=== PATIENT | male | born 1950 | race Caucasian/White ===

== ENCOUNTER 2016-07-23 00:16 | Emergency (ER) | payer MEDICARE ==
[~2016-07-23] VITALS: Ht 181.6 cm; Wt 125.0 kg
[~2016-07-23 00:16] MED LIST: BENA20TA PO; CIPR500T4 PO; FURO40TA PO; HYDR-3129 PO; MORP60TA20 PO; PYRI200T4 PO; RANI300T PO; TAMS0.4C67 PO
[2016-07-23 00:18] VITALS: BP 206/91; PULSE 109; RESP 18; TEMP 98.3; O2SAT 99
[2016-07-23] MEDS ORDERED: MORP1TAB26 PO (00:53)
[2016-07-23] MEDS ORDERED: POTA1TAB4 PO (00:53)
[2016-07-23] MEDS ORDERED: BENA20TA PO (00:53)
[2016-07-23] MEDS ORDERED: FISH1000 PO (00:53)
[2016-07-23] MEDS ORDERED: RANI300T PO (00:53)
[2016-07-23] MEDS ORDERED: FURO80TA PO (00:53)
[2016-07-23] MEDS ORDERED: ALLO100T PO (00:53)
[2016-07-23] MEDS ORDERED: TAMS0.4C4 PO (00:53)
[2016-07-23] MEDS ORDERED: HYDR-3583 PO (00:53)
[2016-07-23] MEDS ORDERED: ASPI-110 PO (00:53)
[2016-07-23] MEDS ORDERED: PROB500T8 PO (00:53)
[2016-07-23] MEDS ORDERED: HYDROmorphone HCL PF 1 MG/ML VIAL IV PUSH ONE ×2 (01:15→03:00)
[2016-07-23 01:43] LABS: BASOPHIL % 0.2 % (0.0-2.0); EOSINOPHIL # 0.1 TH/MM3 (0-0.4); EOSINOPHIL % 1.5 % (0.0-4.0); HEMATOCRIT 44.3 % (39.0-51.0); HEMO FLAGS DIFF FINAL; LYMPH % 11.4 % (9.0-44.0); MEAN CELL VOLUME 90.6 FL (80.0-100.0); MEAN CORPUSCULAR HGB CONC 33.1 % (32.0-36.0); MONO % 6.5 % (0.0-8.0); NEUT % 80.4 % (16.0-70.0); PLATELET COUNT 193 TH/MM3 (150-450); RED BLOOD COUNT 4.89 MIL/MM3 (4.50-5.90); RED CELL DISTRIBUTION WIDTH 14.3 % (11.6-17.2); WHITE BLOOD COUNT 8.7 TH/MM3 (4.0-11.0)
--- NOTE | 2016-07-23 01:44 | RADRPT ---
EXAM DATE/TIME: 07/23/2016 01:15 [facility] COMPARISON: No previous studies available for comparison. INDICATIONS : Severe lower leg pain and swelling. No injury. MEDICAL HISTORY : None. SURGICAL HISTORY : Total knee replacement, left. ENCOUNTER: Initial ACUITY: 2 days PAIN SCORE: 8/10 LOCATION: Left lateral FINDINGS: Two view examination of the left tibia demonstrates no evidence of fracture or dislocation. There is a total knee prosthesis in place. There is superficial soft tissue swelling throughout the calf. Erick caneal spurs are seen at the Achilles and plantar after gross mass effect. There is hypertrophic calc ification at the distal Achilles tendon. Bony mineralization is normal. CONCLUSION: Soft tissue swelling. Antony Cantu MD on July 23, 2016 at 1:40 Board Certified Radiologist. This report was verified electronically.
[2016-07-23 02:03] LABS: ALKALINE PHOSPHATASE 85 U/L (45-117); TOTAL BILIRUBIN ADULT 0.6 MG/DL (0.2-1.0)
[2016-07-23 02:04] LABS: ALT (GPT) 33 U/L (12-78); ANION GAP 8 MEQ/L (5-15); CHLORIDE 102 MEQ/L (98-107); GLOMERULAR FILTRATION RATE 72 ML/MIN (>89); SODIUM (NA) 140 MEQ/L (136-145)
[2016-07-23 02:05] LABS: AST (GOT) 20 U/L (15-37); BLOOD UREA NITROGEN 22 MG/DL (7-18); POTASSIUM 4.1 MEQ/L (3.5-5.1)
--- NOTE | 2016-07-23 02:44 | RADRPT ---
EXAM DATE/TIME: 07/23/2016 01:51 [facility] COMPARISON: No previous studies available for comparison. INDICATIONS : Left leg pain. MEDICAL HISTORY : Hypercholesterolemia. Hypertension. SURGICAL HISTORY : Hernia repair. Finger amputation. Orthopedic surgery, left shouder and bilateral knee. ENCOUNTER: Initial ACUITY: 1 day PAIN SCORE: 10/10 LOCATION: Left leg. TECHNIQUE: Venous ultrasound of the leg was performed from the inguinal ligament to the proximal calf. Real-toshia e, color Doppler and spectral tracing, compression and augmentation techniques were used. FINDINGS: There is normal compressibility of the deep venous system from the inguinal region to the proximal ca lf. No echogenic clot is seen in the lumen of the common femoral, femoral, popliteal, and posterior tibial veins. There is a normal response of the venous system to proximal and distal augmentation an d respiration. CONCLUSION: No DVT. Antony Cantu MD on July 23, 2016 at 2:42 Board Certified Radiologist. This report was verified electronically.
--- NOTE | 2016-07-23 02:50 | PD ---
HPI Chief Complaint: Skin Problem Time Seen by Provider: 00:53 Travel History International Travel<30 days: No Contact w/Intl Traveler<30days: No Traveled to known affect area: No History of Present Illness HPI This is a 66-year-old male who has a history of cardiomyopathy who presents to the emergency department with left lower extremity pain that's been constant, moderate severity, worsening throughout the afternoon, with no associated fevers or chills. Patient was concerned he may have a blood clot in his leg. He doesn't remember injuring his leg. PFSH Past Medical History Cardiovascular Problems: Yes (CARDIOMYOPATHY) High Cholesterol: Yes Genitourinary: Yes (STAPH INFECTION LED TO URETHRA TO CLOSE, PROSTITIS;UTI) Hypertension: Yes Respiratory: Yes (COPD) Triglycerides - High: Yes Past Surgical History Abdominal Surgery: Yes (HERNIA) Cholecystectomy: Yes Thoracic Surgery: Yes (BACK) Other Surgery: Yes (L MIDDLE FINGER AMPUTATION) Social History Alcohol Use: Yes (BEER DAY) Tobacco Use: No (quit 5 years ago) Substance Use: No Allergies-Medications (Allergen,Severity, Reaction): Coded Allergies: Nonsteroidal Anti-Inflammatory Agts (Verified Allergy, Severe, 07/23/16) Uncoded Allergies: CHOLESTERAL MEDS (Allergy, Severe, 02/17/13) Reported Meds & Prescriptions Reported Meds & Active Scripts Active Reported Fish Oil ([place]-3 Fatty Acids) 1,000 Mg Cap 1,000 Mg PO DAILY Aspirin 81 (Aspirin) 81 Mg Tabdr 81 Mg PO DAILY Furosemide 80 Mg Tab 80 Mg PO DAILY Benazepril (Benazepril HCl) 20 Mg Tab 20 Mg PO DAILY K-Tab (Potassium Chloride) 20 Meq Tab 20 Meq PO DAILY Allopurinol 100 Mg Tab 100 Mg PO DAILY Morphine ER (Morphine Sulfate) 60 Mg Tab 60 Mg PO BID Hydrocodone-Acetaminophen 10-325 mg Tab 1 Tab PO Q6H PRN Ranitidine (Ranitidine HCl) 300 Mg Tab 300 Mg PO BID Probenecid 500 Mg Tab 500 Mg PO Q 8HR Tamsulosin (Tamsulosin HCl) 0.4 Mg Cap 0.4 Mg PO HS Review of Systems Except as stated in HPI: all other systems reviewed are Neg Physical Exam Narrative GENERAL:Obese, no acute distress. SKIN: Skin is excoriated on the left lower extremity with warmth and redness and some oozing. HEAD: Atraumatic. Normocephalic. EYES: Pupils equal and round. No injection or drainage. ENT: Moist mucous membranes NECK: Trachea midline. CARDIOVASCULAR: Regular rate and rhythm. No murmur appreciated. RESPIRATORY: Clear to auscultation. Breath sounds equal bilaterally. GASTROINTESTINAL: Abdomen soft, non-tender, nondistended. MUSCULOSKELETAL: Markedly tender to light touch of the left lower extremity with edema. NEUROLOGICAL: Awake and alert. No obvious cranial nerve deficits. Moving all extremities. PSYCHIATRIC: Appropriate mood and affect; insight and judgment normal. Data Data Last Documented VS Vital Signs Date Time Temp Pulse Resp B/P Pulse Ox O2 Delivery O2 Flow Rate FiO2 07/23/16 01:49 18 07/23/16 00:18 98.3 109 206/91 99 Room Air Orders Complete Blood Count With Diff (07/23/16 01:12) Comprehensive Metabolic Panel (07/23/16 01:12) ^ Insert Iv (07/23/16 01:12) Lactic Acid (07/23/16 01:12) Tibia/Fibula (Ap/Lat) (07/23/16 ) Us Leg Venous Doppler (07/23/16 ) Hydromorphone Pf Inj (Dilaudid Pf Inj) (07/23/16 01:15) B-Type Natriuretic Peptide (07/23/16 01:13) Clindamycin Inj (Cleocin Inj) (07/23/16 03:00) Labs Laboratory Tests Test 07/23/16 01:20 White Blood Count 8.7 TH/MM3 Red Blood Count 4.89 MIL/MM3 Hemoglobin 14.7 GM/DL Hematocrit 44.3 % Mean Corpuscular Volume 90.6 FL Mean Corpuscular Hemoglobin 30.0 PG Mean Corpuscular Hemoglobin 33.1 % Concent Red Cell Distribution Width 14.3 % Platelet Count 193 TH/MM3 Mean Platelet Volume 7.8 FL Neutrophils (%) (Auto) 80.4 % Lymphocytes (%) (Auto) 11.4 % Monocytes (%) (Auto) 6.5 % Eosinophils (%) (Auto) 1.5 % Basophils (%) (Auto) 0.2 % Neutrophils # (Auto) 7.0 TH/MM3 Lymphocytes # (Auto) 1.0 TH/MM3 Monocytes # (Auto) 0.6 TH/MM3 Eosinophils # (Auto) 0.1 TH/MM3 Basophils # (Auto) 0.0 TH/MM3 CBC Comment DIFF FINAL Differential Comment Sodium Level 140 MEQ/L Potassium Level 4.1 MEQ/L Chloride Level 102 MEQ/L Carbon Dioxide Level 30.0 MEQ/L Anion Gap 8 MEQ/L Blood Urea Nitrogen 22 MG/DL Creatinine 1.04 MG/DL Estimat Glomerular Filtration 72 ML/MIN Rate Random Glucose 85 MG/DL Lactic Acid Level 2.3 mmol/L Calcium Level 8.6 MG/DL Total Bilirubin 0.6 MG/DL Aspartate Amino Transf 20 U/L (AST/SGOT) Alanine Aminotransferase 33 U/L (ALT/SGPT) Alkaline Phosphatase 85 U/L B-Type Natriuretic Peptide 16 PG/ML Total Protein 6.8 GM/DL Albumin 3.7 GM/DL [facility] Medical Decision Making Medical Screen Exam Complete: Yes Emergency Medical Condition: Yes Interpretation(s) Afebrile, tachycardic, hypertensive No leukocytosis Electrolytes are reassuring Lactic acid is 2.3 BNP is normal Ultrasound: No DVT X-ray: Soft tissue swelling Differential Diagnosis Cellulitis, necrotizing fasciitis, abscess, DVT Narrative Course This is a 66-year-old male who presents to the emergency department with swelling and pain in his left lower extremity. On physical exam he has evidence of cellulitis. He was placed on a monitor and an IV was established. Labs are all reassuring with the exception of a mildly elevated lactic acid but a normal white blood cell count. Ultrasound was obtained which was negative for DVT. I did consider necrotizing fasciitis because the patient has a significant amount of pain associated with the cellulitis. Given his white blood cell count is normal, he is afebrile, and his labs are otherwise reassuring I doubt this represents necrotizing fasciitis. We did market and I told him that if his cellulitis is getting worse rapidly he should return to the emergency Department. I suspect his pain is secondary to opiate associated hyperalgesia as he takes 120 mg of morphine a day. Patient will be discharged home on oral antibiotic therapy. Diagnosis Primary Impression: Cellulitis Qualified Code: L03.116 - Cellulitis of left lower extremity Patient Instructions: General Instructions Additional Instructions: If you develop fever, increasing redness, warmth, or spreading of your infection , or severe pain return to the emergency department immediately as you may require antibiotics through your IV. Complete your course of antibiotics as prescribed. Med/Other Pt SpecificInfo: Prescription(s) given Scripts Clindamycin 300 Mg [id number] Mg PO TID #21 CAP Prov:Elissa Bowens MD 07/23/16 Disposition: 01 DISCHARGE HOME Condition: Stable Elissa Bowens MD Jul 23, 2016 02:50
[2016-07-23] MEDS ORDERED: CLIN1CAP6 PO (02:56)
[2016-07-23] MEDS ORDERED: CLINDAMYCIN INJ 600 MG in SODIUM CHLORIDE 0.9% INJ 100 ML IV ONE (03:00)
[2016-07-23 03:03] VITALS: BP 164/72; PULSE 94; RESP 18; O2SAT 98
[2016-07-23 04:47] VITALS: RESP 18
== END 2016-07-23 04:48 | disposition home or self-care (01) ==
LOC: NEPC 00:16
DX: L03.116 Cellulitis of left lower limb (principal)
CPT/HCPCS: 73590; 80053; 83605; 83880; 85025; 93971; 96365; 96375; 96376; 99284; J1170

== ENCOUNTER 2016-08-14 07:50 | Emergency (ER) | payer MEDICARE ==
[~2016-08-14] VITALS: Ht 180.3 cm; Wt 168.0 kg
[~2016-08-14 07:50] MED LIST changes: +ALLO100T PO; +ASPI-110 PO; -CIPR500T4 PO; +CLIN1CAP6 PO; +FISH1000 PO; -FURO40TA PO; +FURO80TA PO; -HYDR-3129 PO; +HYDR-3583 PO; +MORP1TAB26 PO; -MORP60TA20 PO; +POTA1TAB4 PO; +PROB500T8 PO; -PYRI200T4 PO; +TAMS0.4C4 PO; -TAMS0.4C67 PO
[2016-08-14 07:53] VITALS: BP 165/78; PULSE 84; RESP 16; TEMP 98.5; O2SAT 96
--- NOTE | 2016-08-14 07:59 | PD ---
HPI . Left foot/leg pain that started yesterday Chief Complaint: Pain: Acute or Chronic Time Seen by Provider: 07:59 Travel History International Travel<30 days: No Contact w/Intl Traveler<30days: No Traveled to known affect area: No History of Present Illness HPI 66-year-old with history of hypertension, hyperlipidemia, cardiomyopathy and COPD male who was previously seen in early July with a left leg cellulitis here with complaints of a possible infection starting again. Patient says he was seen in early July and given clindamycin, which resolved his infection. He had followed up with his primary care provider and told that he was much better. Today he says he noticed that his left foot was becoming red and painful again so he decided to come back to the emergency department for evaluation. He tells me that his primary care provider has set him up with a casing finisher and stuffer and a circulation test of his legs. He is complaining of redness and tenderness to the left medial foot. He is not certain if something may have bitten him. He denies any open wounds. He denies any fever or chills. He is accompanied by his . PFSH Past Medical History Cardiovascular Problems: Yes (CARDIOMYOPATHY) High Cholesterol: Yes Genitourinary: Yes (STAPH INFECTION LED TO URETHRA TO CLOSE, PROSTITIS;UTI) Hypertension: Yes Respiratory: Yes (COPD) Triglycerides - High: Yes Past Surgical History Abdominal Surgery: Yes (HERNIA) Cholecystectomy: Yes Thoracic Surgery: Yes (BACK) Other Surgery: Yes (L MIDDLE FINGER AMPUTATION) Social History Alcohol Use: Yes (BEER DAY) Tobacco Use: No (quit 5 years ago) Substance Use: No Allergies-Medications (Allergen,Severity, Reaction): Coded Allergies: Nonsteroidal Anti-Inflammatory Agts (Verified Allergy, Severe, 08/14/16) Uncoded Allergies: CHOLESTERAL MEDS (Allergy, Severe, 02/17/13) Reported Meds & Prescriptions Reported Meds & Active Scripts Active Clindamycin (Clindamycin HCl) 300 Mg Cap 300 Mg PO TID Reported Bumetanide 2 Mg Tab 4 Mg PO DAILY Fish Oil ([place]-3 Fatty Acids) 1,000 Mg Cap 1,000 Mg PO DAILY Aspirin 81 (Aspirin) 81 Mg Tabdr 81 Mg PO DAILY Benazepril (Benazepril HCl) 20 Mg Tab 20 Mg PO DAILY K-Tab (Potassium Chloride) 20 Meq Tab 20 Meq PO DAILY Allopurinol 100 Mg Tab 100 Mg PO DAILY Morphine ER (Morphine Sulfate) 60 Mg Tab 60 Mg PO BID Hydrocodone-Acetaminophen 10-325 mg Tab 1 Tab PO Q6H PRN Ranitidine (Ranitidine HCl) 300 Mg Tab 300 Mg PO BID Probenecid 500 Mg Tab 500 Mg PO Q 8HR Tamsulosin (Tamsulosin HCl) 0.4 Mg Cap 0.4 Mg PO HS Review of Systems General / Constitutional: No: Fever Eyes: No: Visual changes HENT: No: Headaches Cardiovascular: No: Chest Pain or Discomfort Respiratory: No: Shortness of Breath Gastrointestinal: No: Abdominal Pain Genitourinary: No: Dysuria Musculoskeletal: Positive: Pain (left leg/foot pain) Skin: Positive Other (left foot redness), No Rash Neurologic: No: Weakness Psychiatric: No: Depression Endocrine: No: Polydipsia Hematologic/Lymphatic: No: Easy Bruising Physical Exam Narrative GENERAL: AAO x 3, no acute distress, Well-nourished, well-developed patient. SKIN: Warm and dry. No visible rashes or bruising. Left medial foot distal to the medial malleolus with mild erythema, warm to touch, area of cellulitis measuring 9 cm x 6 cm HEAD: Normocephalic and atraumatic. EYES: No scleral icterus. No injection or drainage. ENT: No nasal drainage noted. Mucous membranes pink. Airway patent. NECK: Supple, trachea midline. No JVD. CARDIOVASCULAR: Regular rate and rhythm without murmurs, gallops, or rubs. RESPIRATORY: Breath sounds equal bilaterally. No accessory muscle use. No rhonchi or rales. GASTROINTESTINAL: Abdomen soft, non-tender, nondistended. EXTREMITIES: No cyanosis or edema. Pedal pulses are intact bilaterally. No other abnormality on bilateral lower extremities other than what is reported in skin BACK: Nontender without obvious deformity. No CVA tenderness. PSYCH: AAO x 3, normal affect. Data Data Last Documented VS Vital Signs Date Time Temp Pulse Resp B/P Pulse Ox O2 Delivery O2 Flow Rate FiO2 08/14/16 07:53 98.5 84 16 165/78 96 MDM Medical Decision Making Medical Screen Exam Complete: Yes Emergency Medical Condition: Yes Medical Record Reviewed: Yes Differential Diagnosis Left leg/foot cellulitis, less likely DVT, less likely sepsis Narrative Course 66-year-old with history of hypertension, hyperlipidemia, cardiomyopathy and COPD male who was previously seen in early July with a left leg cellulitis here with complaints of a possible infection starting again. Patient says he was seen in early July and given clindamycin, which resolved his infection. He had followed up with his primary care provider and told that he was much better. Today he says he noticed that his left foot was becoming red and painful again so he decided to come back to the emergency department for evaluation. He tells me that his primary care provider has set him up with a casing finisher and stuffer and a circulation test of his legs. He is complaining of redness and tenderness to the left medial foot. He is not certain if something may have bitten him. He denies any open wounds. He denies any fever or chills. He is accompanied by his . Patient seen and examined. He seems to have a very mild cellulitis on the left medial foot. Last visit venous doppler negative for DVT. Today he is afebrile, this area is very small compared to last visit. I will go ahead and give him another course of clindamycin as this seemed to resolve his issue last time. I've advised him that he needs to see his primary care provider this week for follow-up. He will make an appointment. I advised him to look out for worsening infection, and go to the nearest emergency department if it develops. Patient verbalized understanding of instructions, questions were answered, and thanked me for their care. I advised them if their condition worsens, please return to the nearest emergency room for further care. Diagnosis Primary Impression: Cellulitis Qualified Code: L03.116 - Cellulitis of left lower extremity Patient Instructions: Cellulitis (ED), General Instructions Additional Instructions: [place] for worsening signs of infection which include increased fever, redness , increased warmth, purulent drainage, increased swelling or streaking. If any of these develop, please go to the nearest emergency department. Please return to emergency department if your symptoms return or worsen. Follow up with your primary care provider. Take medications as prescribed. Please see your primary care provider this week as we discussed. Med/Other Pt SpecificInfo: Prescription(s) given Scripts Clindamycin 300 Mg [id number] Mg PO TID #21 CAP Prov:Rhiannon Leon MD 08/14/16 Disposition: 01 DISCHARGE HOME Condition: Stable Mangali,Louisa PA Aug 14, 2016 07:59
[2016-08-14] MEDS ORDERED: CLIN1CAP6 PO (08:03)
[2016-08-14] MEDS ORDERED: BUME2TAB PO (08:11)
== END 2016-08-14 08:49 | disposition home or self-care (01) ==
LOC: NEPK 07:50
DX: L03.116 Cellulitis of left lower limb (principal); I42.9 Cardiomyopathy, unspecified; J44.9 Chronic obstructive pulmonary disease, unspecified; I10 Essential (primary) hypertension; E78.00 Pure hypercholesterolemia, unspecified
CPT/HCPCS: 99283